=== PATIENT | male | born 1995 | race Caucasian/White ===

== ENCOUNTER 2024-03-08 12:48 | Emergency (ER) | payer OTHER, SELFPAY ==
[~2024-03-08] VITALS: Ht 180.3 cm; Wt 73.0 kg
[2024-03-08] MEDS ORDERED: SUBO8MIS SL (13:12)
[2024-03-08 15:55] VITALS: BP 116/77; TEMP 98.7; O2SAT 97
[2024-03-08] MEDS: BUPRENORPHINE/NALOXONE 8-2MG SUBLINGUAL TABLET(SUBOXONE) SL SCH (15:55)
[2024-03-09] MEDS ORDERED: BUPRENORPHINE/NALOXONE 8-2MG SUBLINGUAL TABLET(SUBOXONE) SL SCH (09:00)
== END 2024-03-08 15:57 | disposition home or self-care (01) ==
LOC: M ED 12:48
DX: Z76.0 Encounter for issue of repeat prescription (principal); F19.10 Other psychoactive substance abuse, uncomplicated; Z79.899 Other long term (current) drug therapy